=== PATIENT | female | born 1995 | race Caucasian/White ===

== ENCOUNTER 2018-10-11 20:20 | Emergency (ER) | payer OTHER, SELFPAY ==
[2018-10-11 20:39] VITALS: BP 121/78; PULSE 84; RESP 18; TEMP 36.6; O2SAT 100; BMI 22.6
--- NOTE | 2018-10-11 22:54 | DI.US.S_ITS ---
PROCEDURE: US PELVIC COMPLETE INDICATIONS: HEAVY BLEEDING WITH PAIN TECHNIQUE: Real-time scanning was performed of the pelvic organs, with image documentation. Additional endovaginal scanning was necessary due to incomplete visualization of the adnexal and endometrial structures by transabdominal scanning. COMPARISON: None. FINDINGS: Transabdominal scanning: Limited scanning through the kidneys shows no hydronephrosis. No pathologic free abdominal or pelvic fluid. Endovaginal scanning: Uterus: Uterus is normal in size at 7.8 x 3.4 x 4.4 cm. The endometrium measures 7 mm in combined thickness. There is an ill-defined hypoechoic region near the uterine fundus measuring 1.5 cm, possibly representing an intramural fibroid. Ovaries: The right ovary measures 4.3 x 2.2 x 3.5 cm. The left ovary measures 3.8 x 2.7 x 2.5 cm. Numerous bilateral ovarian follicles number greater than 12 in each ovary with ovarian volumes greater than 10 cubic centimeters. Findings are suggestive of possible polycystic ovarian syndrome. IMPRESSION: 1. Pelvic ultrasound without acute sonographic abnormalities. 2. Heterogeneous, 1.5 cm hypoechoic focus within the uterine fundus possibly representing a fibroid. 3. Sonographic findings suggestive of polycystic ovarian syndrome. Recommend clinical correlation. Findings are concordant with preliminary radiology report. Dictated by: Estevan Meredith M.D. on 10/12/2018 at 13:54 Approved by: Estevan Meredith M.D. on 10/12/2018 at 14:03
--- NOTE | 2018-10-11 23:28 | ED.ABDPAIN ---
HPI - Abdominal Pain General Chief Complaint: Abdominal Pain Stated Complaint: LOWER RT BACK PAIN HEAVY PERIOD Time Seen by Provider: 10/11/18 23:24 Source: patient Mode of arrival: ambulatory Limitations: no limitations History of Present Illness HPI narrative: Patient is a 22-year-old female who states that her last menstrual cycle was June last year. She stated that she normally is very regular with her menses. States that today she started having having vaginal bleeding. This is the 1st time that she has bled since her menstrual cycle last June. She states she does have lower abdominal pain as well. No urinary symptoms. Related Data Previous Rx's Medication Instructions Recorded nitrofurantoin monohyd/m-cryst 100 mg PO BID #14 cap 03/14/17 [Macrobid] phenazopyridine [Pyridium] 200 mg PO TID #6 tab 03/14/17 amoxicillin-pot clavulanate 875 mg PO BID 10 Days #0 tab 09/01/17 [Augmentin] Allergies Allergy/AdvReac Type Severity Reaction Status Date / Time No Known Allergies Allergy Uncoded 11/14/17 12:46 Review of Systems Constitutional Denies fever(s) Cardiovascular Denies chest pain and Denies dyspnea Respiratory Denies dyspnea Gastrointestinal Gastrointestinal: Reports abdominal pain and Reports cramping Genitourinary Denies dysuria Comments: Heavy vaginal bleeding Musculoskeletal Reports back pain Integumentary/Breasts Denies lesions and Denies rash Hematologic/Lymphatic Denies easy bleeding and Denies easy bruising PFSH Medical History Healthy adult (Acute) Social History Smoking Status: Never smoker Social History Smoking Status: Never smoker Exam Initial Vital Signs Initial Vital Signs: Vital Signs Temperature 97.9 F 10/11/18 20:39 Pulse Rate 84 10/11/18 20:39 Respiratory Rate 18 10/11/18 20:39 Blood Pressure 121/78 10/11/18 20:39 Pulse Oximetry 100 10/11/18 20:39 Const General: cooperative, healthy appearing, comfortable, well developed, well groomed and No acute distress Orientation: alert, awake and oriented x3 HENMT Head: normal to inspection and normocephalic Resp Effort & Inspection: normal respiratory effort Cardio Rate: regular rate GI Inspection: non-distended Skin Lesions: no lesions Rashes: no rashes Neuro General: alert and awake Psych Appearance: grossly normal and well kempt Course Orders Ordered: ED Orders 10/11/18 22:54 US pelvic complete Stat 10/11/18 23:32 CBC [Complete Blood Count AUTO DIFF] Stat CMP [Comprehensive Metabolic Panel] Stat Vital Signs - 8 hr 10/11/18 20:39 10/12/18 01:09 Temperature 97.9 F Pulse Rate 84 99 H Respiratory Rate 18 15 Blood Pressure 121/78 114/77 Pulse Oximetry 100 99 MDM - Abdominal Pain Lab Data Attestation: I reviewed the patient's lab results. Result diagrams: 10/11/18 23:32 10/11/18 23:32 Lab Results 10/11/18 10/11/18 Range/Units 23:32 23:32 WBC 9.1 (4.5-11.0) X10^3/uL RBC 4.89 (4.0-5.2) X10^6/uL Hgb 13.5 (12.0-16.0) g/dL Hct 40.7 (36-46) % MCV 83.2 (80-100) fL MCH 27.6 (26-34) PG MCHC 33.2 (30-36) % RDW 13.3 (11.6-14.8) % Plt Count 309 (150-400) X10^3/uL Neut % (Auto) 58.6 (50-75) % Lymph % (Auto) 33.9 (25-40) % [place] % (Auto) 6.0 (3-14) % Eos % (Auto) 0.9 L (2-4) % Baso % (Auto) 0.6 (0-2) % Neut # (Auto) 5400 (6766-7248) /uL Lymph # (Auto) 3100 (8675-0217) /uL [place] # (Auto) 500 (0-900) /uL Eos # (Auto) 100 (0-450) /uL Baso # (Auto) 100 (0-100) /uL Sodium 139 (137-145) mmol/L Potassium 4.3 (3.4-5.1) mmol/L Chloride 104 (98-107) mmol/L Carbon Dioxide 25 (22-32) mmol/L BUN 10 (7-17) mg/dL Creatinine 0.80 (0.52-1.04) mg/dL Estimated GFR > 60.0 (>60) mL/min BUN/Creatinine Ratio 12.5 (6-22) Glucose 83 (70-100) mg/dL Calcium 9.4 (8.4-10.2) mg/dL Total Bilirubin 0.7 (0.2-1.3) mg/dL AST 22 (14-36) IU/L ALT 27 (9-52) IU/L Alkaline Phosphatase 68 (38-126) U/L Total Protein 7.8 (6.3-8.2) g/dL Albumin 4.7 (3.5-5.0) g/dL Globulin 3.1 (1.7-4.1) g/dL Albumin/Globulin Ratio 1.5 (1.0-2.8) Point of care testing: Point of Care Testing Test Results Negative Urine Dip Bedside Urine Glucose Negative Bedside Urine Bilirubin - Negative Bedside Urine Ketone +/- 5 Urine Specific [place] 1.010 Bedside Urine Occult Blood +++ Bedside Urine pH 7.0 Bedside Urine Protein +/- 15 Bedside Urine Urobilinogen - Negative Bedside Urine Nitrite - Negative Bedside Urine Leukocytes - Negative Esterase Imaging Data US - abdomen: Radiologist's impression: Numerous peripheral ovarian follicles, Normal ovaries MDM Narrative Medical decision making narrative: Pelvic ultrasound is unremarkable. Labs are unremarkable. I suspect that this is dysfunctional uterine bleeding/abnormal uterine bleeding given that she has not had a menstrual cycle in the past several months. No signs of on the ultrasound. No signs of ectopic on the ultrasound. Discussed all this with the patient. Hold on further workup for now. She is given return precautions. She expressed understanding and agreement with plan. Discharge Plan Departure Patient Disposition: Home Clinical Impression: Abnormal vaginal bleeding Discharge Date/Time: 10/12/18 01:11 Interventions: ED Discharge Assessment Last Done: 10/12/18 01:09 Instructions: DI for Abnormal Uterine Bleeding Activity Restrictions/Additional Instructions: You can take Tylenol/ibuprofen for any pain. Talked with her primary doctor if you wish to start on a control to regulate her menstrual cycles. Return to the emergency department for any new or worsening symptoms Prescriptions: No Action phenazopyridine [Pyridium] 200 MG tablet 200 mg PO TID Qty: 6 RF: 0 nitrofurantoin monohyd/m-cryst [Macrobid] 100 MG capsule 100 mg PO BID Qty: 14 RF: 0 amoxicillin-pot clavulanate [Augmentin] 875 MG/125 MG tablet 875 mg PO BID 10 Days Qty: 0 RF: 0
[2018-10-12 00:03] LABS: Alanine Aminotransferase 27 IU/L (9-52); Albumin 4.7 g/dL (3.5-5.0); Albumin Globulin Ratio 1.5 (1.0-2.8); Alkaline Phosphatase 68 U/L (38-126); Aspartate Aminotransferase 22 IU/L (14-36); BUN Creatinine Ratio 12.5 (6-22); Bilirubin Total 0.7 mg/dL (0.2-1.3); Blood Urea Nitrogen 10 mg/dL (7-17); Calcium 9.4 mg/dL (8.4-10.2); Carbon Dioxide 25 mmol/L (22-32); Chloride 104 mmol/L (98-107); Estimated Glomerular Filt Rate > 60.0 mL/min (>60); Globulin 3.1 g/dL (1.7-4.1); Glucose 83 mg/dL (70-100); HEMOLYSIS < 15 (0-50); Potassium 4.3 mmol/L (3.4-5.1); Sodium 139 mmol/L (137-145); Total Protein 7.8 g/dL (6.3-8.2)
[2018-10-12 00:16] LABS: Add Manual Diff / Slide Review NO; Basophils Absolute Auto 100 /uL (0-100); Basophils Percent Auto 0.6 % (0-2); Eosinophils Absolute Auto 100 /uL (0-450); Eosinophils Percent Auto 0.9 % (2-4); Hematocrit 40.7 % (36-46); Hemoglobin 13.5 g/dL (12.0-16.0); Lymphocytes Absolute Auto 3100 /uL (1100-4500); Lymphocytes Percent Auto 33.9 % (25-40); Mean Corpuscular HGB Conc 33.2 % (30-36); Mean Corpuscular Hemoglobin 27.6 PG (26-34); Mean Corpuscular Volume 83.2 fL (80-100); Monocytes Absolute Auto 500 /uL (0-900); Neutrophils Absolute Auto 5400 /uL (1500-7000); Neutrophils Percent Auto 58.6 % (50-75); Platelet Count 309 X10^3/uL (150-400); Red Blood Cell Count 4.89 X10^6/uL (4.0-5.2); Red Cell Distribution Width 13.3 % (11.6-14.8); White Blood Cell Count 9.1 X10^3/uL (4.5-11.0)
[2018-10-12 01:09] VITALS: BP 114/77; PULSE 99; RESP 15; O2SAT 99
== END 2018-10-12 01:11 | disposition home or self-care (01) ==
PROVIDERS: Emergency Provider Emergency Medicine
DX: N93.9 Abnormal uterine and vaginal bleeding, unspecified (principal)
CPT/HCPCS: 36415; 76830; 76856; 80053; 81003; 81025; 85025; 99282; 99284

== ENCOUNTER 2018-11-08 02:11 | Emergency (ER) | payer OTHER, SELFPAY ==
[2018-11-08 02:15] VITALS: BP 116/84; PULSE 69; RESP 18; TEMP 36.4; O2SAT 100; BMI 21.6
--- NOTE | 2018-11-08 02:28 | ED.WOUNDLAC ---
HPI - Wound/Laceration General Chief Complaint: Wound/Laceration Stated Complaint: cut left thumb Time Seen by Provider: 11/08/18 02:27 Source: patient Mode of arrival: ambulatory Limitations: no limitations History of Present Illness HPI narrative: Patient is a 22-year-old female who presents left hand laceration. Condition she got her left palm at the base of the thumb. She feels like it is tingly a little but no weakness or decreased range of motion. Onset (ago): minute(s) Related Data Previous Rx's Medication Instructions Recorded nitrofurantoin monohyd/m-cryst 100 mg PO BID #14 cap 03/14/17 [Macrobid] phenazopyridine [Pyridium] 200 mg PO TID #6 tab 03/14/17 amoxicillin-pot clavulanate 875 mg PO BID 10 Days #0 tab 09/01/17 [Augmentin] Allergies Allergy/AdvReac Type Severity Reaction Status Date / Time No Known Allergies Allergy Uncoded 11/14/17 12:46 Review of Systems Review of Systems GENERAL: Denies chills,fever HEENT: Denies throat pain RESPIRATORY: Denies dyspnea, cough, wheezing CARDIOVASCULAR: Denies chest pain, palpitations GASTROINTESTINAL: Denies nausea, vomiting MUSCULOSKELETAL: Denies extremity pain, injury SKIN: + laceration NEUROLOGIC: + tingling left Denies weakness, dizziness, headache, numbness 8 point review of systems is negative except for those stated above and HPI [facility] Medical History Healthy adult (Acute) Social History Smoking Status: Never smoker Social History Smoking Status: Never smoker Exam Initial Vital Signs Initial Vital Signs: Vital Signs Temperature 97.5 F L 11/08/18 02:15 Pulse Rate 69 11/08/18 02:15 Respiratory Rate 18 11/08/18 02:15 Blood Pressure 116/84 11/08/18 02:15 Pulse Oximetry 100 11/08/18 02:15 GENERAL: Well-appearing, well-nourished and in no acute distress. CARDIOVASCULAR: peripheral pulses in tact, cap refill <2 sec RESPIRATORY: No respiratory distress, speaks in full sentences without difficulty EXTREMITIES: Normal range of motion, no clubbing or edema. Neurovascularly intact Neurovascularly in tact of the left thumb. Sensation intact between 1st and 2nd finger. Has good opposition flexion and extension. NEUROLOGICAL: Cranial nerves II through XII grossly intact. Normal gait and speech. SKIN: Left palmar hand 1.5 cm laceration at the thenar Procedures Laceration Repair Laceration 1: Site: hand Side (If applicable): left Size (cm): 1.5 Description: linear Depth: simple, single layer Local Anesthetic: lidocaine 1% and with bicarb Amount of anesthesia used (mL): 2 Pre-repair: wound explored, irrigated extensively, deep structures intact and extensive debridement Skin layer closed with: nylon Size (cm): 4-0 Number of sutures: 2 Technique: simple, interrupted Course Vital Signs - 8 hr 11/08/18 02:15 Temperature 97.5 F L Pulse Rate 69 Respiratory Rate 18 Blood Pressure 116/84 Pulse Oximetry 100 Discharge Plan Departure Patient Disposition: Home Clinical Impression: Laceration of hand, left Qualifiers: Encounter type: initial encounter Foreign body presence: without foreign body Qualified Code(s): S61.412A - Laceration without foreign body of left hand, initial encounter Discharge Date/Time: 11/08/18 02:44 Interventions: ED Discharge Assessment Last Done: 11/08/18 02:44 Instructions: DI for Laceration Repair Activity Restrictions/Additional Instructions: 1. Have your suture removed in 5-7 days, you may go to walk-in clinic, return to the ER or call your primary care physician. 2. No soaking in water including dishes, bathtubs, Lakes, swimming pools etc 3. Signs of infection include, but not limited to, increased redness, increased swelling, increased pain, fever and purulent drainage, if the symptoms should arise, you may need an antibiotic and you should have a reevaluation either by your primary care provider or by the emergency department. Prescriptions: No Action phenazopyridine [Pyridium] 200 MG tablet 200 mg PO TID Qty: 6 RF: 0 nitrofurantoin monohyd/m-cryst [Macrobid] 100 MG capsule 100 mg PO BID Qty: 14 RF: 0 amoxicillin-pot clavulanate [Augmentin] 875 MG/125 MG tablet 875 mg PO BID 10 Days Qty: 0 RF: 0 Referrals: [facility] [Provider Group]
== END 2018-11-08 02:44 | disposition home or self-care (01) ==
PROVIDERS: Emergency Provider Emergency Medicine
DX: S61.412A Laceration without foreign body of left hand, initial encounter (principal)
CPT/HCPCS: 12001; 99283